=== PATIENT | female | born 1980 | race Two or more races ===

== ENCOUNTER 2025-09-08 12:33 | Outpatient (CLI) | payer MEDICAID ==
[2025-09-08 14:04] LABS: Alanine Aminotransferase 13.0 U/L (7-40); Alkaline Phosphatase 107.0 U/L (46-116); Bilirubin, Total 0.4 mg/dL (0.2-1.0); Total Protein 7.6 g/dL (5.7-8.2)
[2025-09-08 14:05] LABS: Bilirubin, Direct 0.1 mg/dL (<0.3)
[2025-09-08 14:07] LABS: Albumin 4.3 g/dL (3.2-4.8)
== END 2025-09-08 17:00 | disposition home or self-care (01) ==
LOC: LAB 12:33
PROVIDERS: ATTEND Podiatrist
DX: B35.1 Tinea unguium (principal)
CPT/HCPCS: 36415; 80076